=== PATIENT | male | born 1960 | race Caucasian/White ===

== ENCOUNTER → 2023-12-24 07:38 | Outpatient (REF) | payer MEDICARE, SELFPAY | LOC: EMG 07:38 | PROVIDERS: ATTENDING PHYSICIAN Podiatrist | DX: E11.9 Type 2 diabetes mellitus without complications (principal); M54.16 Radiculopathy, lumbar region; R20.0 Anesthesia of skin | CPT/HCPCS: 95886; 95911 ==